=== PATIENT | male | born 1950 | race Caucasian/White ===

== ENCOUNTER → 2018-11-21 08:41 | Outpatient (CLI) | payer MEDICARE, OTHER, SELFPAY ==
--- NOTE | 2018-11-21 | DI.MRI.S_ITS ---
PROCEDURE: MR ANKLE RT WO CON INDICATIONS: RIGHT ANKLE WEAKNESS TECHNIQUE: Noncontrast sagittal T1 spin echo and T2 fast spin echo with fat saturation, axial proton density fast spin echo and T2 fast spin echo with fat saturation, coronal T1 spin echo and T2 fast spin echo with fat saturation through the ankle/hindfoot. COMPARISON: None. FINDINGS: Image quality: Excellent. Bones and joints: No bone marrow contusions or fractures. No hindfoot coalitions. Sub-5 mm subchondral marrow edema present within the medial talar dome. There is circumferential subcutaneous posterior ankle edema. No pathologic joint effusions. Medial structures: The posterior tibialis, flexor digitorum longus, and flexor hallucis longus tendons are intact. There is minimal posterior tibialis tenosynovitis. The posterior tibial neurovascular bundle appears normal within the tarsal tunnel, without extrinsic mass effect. The deep layer (anterior and posterior tibiotalar ligaments) and superficial layer (tibionavicular, tibiospring, and tibiocalcaneal ligaments) of the deltoid ligament appear normal. The spring ligament components (superomedial calcaneonavicular, medioplantar oblique calcaneonavicular, and inferoplantar longitudinal ligaments) are intact. Lateral structures: The anterior talofibular, calcaneofibular, and posterior talofibular ligaments appear intact. More superiorly, the anterior and posterior tibiofibular ligaments appear intact, as is the intermalleolar ligament. The tibiofibular syndesmosis is normal in width at 2 mm or less. The peroneus longus and brevis tendons demonstrate normal location and morphology. Adjacent bony peroneal tubercle and retrotrochlear prominence are normal in size. The sinus tarsi demonstrates normal fatty signal, without edema, fibrosis, or cyst formation. Visualized sinus tarsi components (cervical ligament, interosseous talocalcaneal ligament, roots of the inferior extensor retinaculum) appear normal. The calcaneonavicular and calcaneocuboid components of the bifurcate ligament appear intact. The dorsal calcaneocuboid ligament appears intact. Anterior structures: The tibialis anterior, extensor hallucis longus, and extensor digitorum longus tendons appear intact. The dorsal talonavicular ligament appears intact. Posterior and plantar structures: Achilles tendon is intact. Mild thickening of the medial band of the plantar fascia at the calcaneal attachment. IMPRESSION: Subchondral marrow signal change involving the medial talar dome, which could be degenerative versus osteochondral defect. No in situ fragment identified. Mild medial band plantar fasciitis, technically age-indeterminate. Prominent circumferential posterior subcutaneous edema, of unclear etiology. Low-grade posterior tibialis tenosynovitis. Dictated by: Jalen Argueta M.D. on 11/21/2018 at 10:26 Approved by: Jalen Argueta M.D. on 11/21/2018 at 10:44
== END ==
PROVIDERS: PCP Family Medicine; Visit Provider Family Medicine
DX: M25.871 Other specified joint disorders, right ankle and foot (principal); M72.2 Plantar fascial fibromatosis; M65.871 Other synovitis and tenosynovitis, right ankle and foot
CPT/HCPCS: 73721

== ENCOUNTER → 2020-02-28 12:32 | Outpatient (CLI) | payer MEDICARE, OTHER, SELFPAY ==
--- NOTE | 2020-02-28 12:35 | DI.MRI.S_ITS ---
PROCEDURE: MR KNEE RT WO CON INDICATIONS: Pain in right knee TECHNIQUE: Noncontrast sagittal PD fast spin echo and T2 fast spin echo with fat saturation, sagittal 3-D FLASH with fat saturation; coronal T1 spin echo and PD fast spin echo with fat saturation, and axial PD fast spin echo with fat saturation through the knee. COMPARISON: None. FINDINGS: Image quality: Excellent. Menisci: There is a complex tear involving the posterior horn of the medial meniscus. In addition, there is a radial tear involving the body of the medial meniscus. The lateral meniscus demonstrates normal morphology and internal signal. The meniscal root ligaments appear intact. Cruciate ligaments: The anterior and posterior cruciate ligaments appear intact. Medial structures: There is grade 1 sprain of the medial collateral ligament. The semimembranosus tendon insertions and meniscocapsular junction appear intact. Visualized portions of the pes anserinus tendons appear normal. No abnormal bursal fluid. Lateral structures: The lateral collateral ligament, long and short heads of the biceps femoris tendon appear intact. The popliteus tendon appears normal. Iliotibial band appears normal. Anterior structures: The quadriceps and patellar tendons appear intact. Patellar alignment is normal. No femoral trochlear dysplasia or ventral trochlear prominence. No edema in the infrapatellar fat pad. Bones and cartilage: No bone marrow contusions or fractures. There is mild cartilage thinning and fibrillation of the medial femorotibial compartment. Joint space: There is moderate knee joint effusion. There is a small Crowe's cyst. A synovial cyst is noted at the proximal tibiofibular joint. Normal appearing synovial plicae are incidentally noted. IMPRESSION: 1. Complex tear of the posterior horn of the medial meniscus. In addition, there is a radial tear of the body of the medial meniscus. 2. Grade 1 sprain of the medial collateral ligament. 3. Moderate knee joint effusion. 4. A small Crowe's cyst. 5. A small synovial cyst at the proximal tibial fibular joint. Dictated by: Sanna Morocho M.D. on 03/01/2020 at 8:55 Approved by: Sanna Morocho M.D. on 03/01/2020 at 12:45
== END ==
PROVIDERS: PCP Internal Medicine; Referring Provider Internal Medicine; Visit Provider Internal Medicine
DX: M25.561 Pain in right knee (principal); S83.231A Complex tear of medial meniscus, current injury, right knee, initial encounter; S83.411A Sprain of medial collateral ligament of right knee, initial encounter; M25.461 Effusion, right knee; M71.21 Synovial cyst of popliteal space [Baker], right knee
CPT/HCPCS: 73721

== ENCOUNTER → 2021-11-23 06:47 | Outpatient (CLI) | payer MEDICARE, OTHER, SELFPAY ==
[2021-11-23 08:27] LABS: Prostate Specific Antigen 1.45 ng/mL (0.10-4.00)
== END ==
PROVIDERS: PCP Internal Medicine; Referring Provider Specialist; Visit Provider Specialist
DX: N40.1 Benign prostatic hyperplasia with lower urinary tract symptoms (principal); D41.01 Neoplasm of uncertain behavior of right kidney; N13.8 Other obstructive and reflux uropathy; R97.20 Elevated prostate specific antigen [PSA]; K40.20 Bilateral inguinal hernia, without obstruction or gangrene, not specified as recurrent
CPT/HCPCS: 36415; 51798; 81002; 84153; 99215

== ENCOUNTER → 2022-05-25 10:28 | Outpatient (CLI) | payer MEDICARE, OTHER, SELFPAY ==
--- NOTE | 2022-05-25 12:46 | DI.US.S_ITS ---
PROCEDURE: US RENAL COMPLETE INDICATIONS: Renal Mass TECHNIQUE: Real-time scanning was performed of the kidneys and bladder, with image documentation. COMPARISON: [facility], [place], US ABDOMEN, 10/13/2021, 11:00. [facility], [place], CT ABDOMEN W/WO CONTRAST, 10/28/2021, 10:13. FINDINGS: Kidneys: There is a 1.2 x 1.5 x 1.1 cm hyperechoic, solid appearing mass in the lateral cortex of the mid right kidney. The mass was seen on the prior ultrasound CT and appears unchanged in size. Kidneys are normal in size. Right kidney measures 9.5 cm long; left kidney measures 9.9 cm long. Right renal cortical thickness is 1.3 cm; left renal cortical thickness is 2.0 cm. Renal cortical echotexture is normal. No hydronephrosis or nephrolithiasis. No suspicious solid mass lesions. Bladder: Pre-void bladder volume is 118 mL. Post-void residual is 0 mL. Pre-void images demonstrate no intraluminal masses or stones. On pre-void images, both ureteral jets are noted with color Doppler interrogation. (Of note, ureteral jets may not be detectable in up to 25% of cases due to insufficient differences in specific gravity between ureteral and bladder urine). Miscellaneous: No free pelvic fluid. IMPRESSION: A hyperechoic, solid mass in mid right kidney concerning for a renal cell carcinoma. The mass appears unchanged in size when compared to the last ultrasound and CT. Dictated by: Sanna Morocho M.D. on 05/25/2022 at 13:54 Approved by: Sanna Morocho M.D. on 05/25/2022 at 14:04
[2022-05-25 15:03] LABS: Prostate Specific Antigen 0.977 ng/mL (0.10-4.00)
== END ==
PROVIDERS: PCP Internal Medicine; Referring Provider Specialist; Visit Provider Specialist
DX: D41.01 Neoplasm of uncertain behavior of right kidney (principal); N40.1 Benign prostatic hyperplasia with lower urinary tract symptoms; N13.8 Other obstructive and reflux uropathy; K40.20 Bilateral inguinal hernia, without obstruction or gangrene, not specified as recurrent
CPT/HCPCS: 36415; 76770; 84153

== ENCOUNTER → 2022-11-16 10:06 | Outpatient (CLI) | payer MEDICARE, OTHER, SELFPAY ==
--- NOTE | 2022-11-16 10:08 | DI.US.S_ITS ---
PROCEDURE: US RENAL COMPLETE INDICATIONS: RIGHT KIDNEY MASS TECHNIQUE: Real-time scanning was performed of the kidneys and bladder, with image documentation. COMPARISON: [facility], , US RENAL COMPLETE, 05/25/2022, 12:54. FINDINGS: Kidneys: Kidneys are normal in size. Right kidney measures 9.8 cm long; left kidney measures 10.8 cm long. Right renal cortical thickness is 1.2 cm; left renal cortical thickness is 1.7 cm. Renal cortical echotexture is normal. No hydronephrosis or nephrolithiasis. 1.2 x 0.9 x 1.5 cm slightly hypoechoic and solid appearing nodule involving anterior cortex of midpole right kidney is seen previously measures 1.5 x 1.1 x 1.2 cm in size. No definite internal vascularity is noted. Bladder: Pre-void bladder volume is 471 mL. Post-void residual is 45 mL. Pre-void images demonstrate no intraluminal masses or stones. On pre-void images, no ureteral jets are noted with color Doppler interrogation. (Of note, ureteral jets may not be detectable in up to 25% of cases due to insufficient differences in specific gravity between ureteral and bladder urine). Miscellaneous: No free pelvic fluid. Mildly enlarged prostate gland with heterogeneous echotexture and mild mass effect on floor of urinary bladder is seen measures 4.5 x 4.4 x 3.7 cm in size. IMPRESSION: 1. Previously noted solid nodule in midpole right kidney remains stable in size and appearance. Slow growing renal cell carcinoma remains as primary differential. 2. No hydronephrosis. No new suspicious renal lesion. 3. Normal appearing urinary bladder with small to moderate amount of postvoid residual. Mildly enlarged prostate gland as above. Dictated by: Aly Horne M.D. on 11/16/2022 at 12:51 Approved by: Aly Horne M.D. on 11/16/2022 at 13:02
[2022-11-16 12:52] LABS: Prostate Specific Antigen 0.782 ng/mL (0.10-4.00)
== END ==
PROVIDERS: PCP Student in an Organized Health Care Education/Training Program; Referring Provider Specialist; Visit Provider Specialist
DX: N40.1 Benign prostatic hyperplasia with lower urinary tract symptoms (principal); N13.8 Other obstructive and reflux uropathy; D41.01 Neoplasm of uncertain behavior of right kidney
CPT/HCPCS: 36415; 76770; 84153

== ENCOUNTER → 2023-11-14 09:39 | Outpatient (CLI) | payer MEDICARE, OTHER, SELFPAY ==
--- NOTE | 2023-11-14 09:41 | DI.US.S_ITS ---
PROCEDURE: US RENAL COMPLETE INDICATIONS: Neoplasm of kidney TECHNIQUE: Real-time scanning was performed of the kidneys and bladder, with image documentation. COMPARISON: , , RENAL COMPLETE, 11/16/2022, 11:12. FINDINGS: Kidneys: Kidneys are normal in size. Right kidney measures 10.8 cm long; left kidney measures 10.5 cm long. Right renal cortical thickness is 1.0 cm; left renal cortical thickness is 1.0 cm. Renal cortical echotexture is normal. No hydronephrosis or nephrolithiasis. There is a heterogeneous, solid-appearing renal lesion measuring 2.0 x 1.7 x 1.7 cm, previously 1.2 x 0.9 x 1.5 cm. Bladder: Pre-void bladder volume is 200 mL. Post-void residual is 10 mL. Pre-void images demonstrate no intraluminal masses or stones. On pre-void images, bilateral ureteral jets are noted with color Doppler interrogation. (Of note, ureteral jets may not be detectable in up to 25% of cases due to insufficient differences in specific gravity between ureteral and bladder urine). Miscellaneous: No free pelvic fluid. The prostate appears enlarged. IMPRESSION: 2.0 cm solid lesion in the right kidney, with mild interval increase in size, raising concern for renal cell carcinoma. Dictated by: Flora Gomez M.D. on 11/14/2023 at 14:03 Approved by: Flora Gomez M.D. on 11/14/2023 at 14:08
[2023-11-14 14:29] LABS: Prostate Specific Antigen 0.862 ng/mL (0.10-4.00)
== END ==
PROVIDERS: PCP Student in an Organized Health Care Education/Training Program; Referring Provider Specialist; Visit Provider Specialist
DX: R97.20 Elevated prostate specific antigen [PSA] (principal); D41.01 Neoplasm of uncertain behavior of right kidney
CPT/HCPCS: 36415; 76770; 84153

== ENCOUNTER → 2024-06-05 10:25 | Outpatient (CLI) | payer MEDICARE, OTHER, SELFPAY ==
--- NOTE | 2024-06-05 10:26 | DI.US.S_ITS ---
PROCEDURE: US RENAL COMPLETE INDICATIONS: KIDNEY STONES TECHNIQUE: Real-time scanning was performed of the kidneys and bladder, with image documentation. COMPARISON: [facility], , US RENAL COMPLETE, 11/14/2023, 10:05. FINDINGS: Kidneys: Kidneys are normal in size. Right kidney measures 10.6 cm long; left kidney measures 10.9 cm long. Right renal cortical thickness is 1.5 cm; left renal cortical thickness is 2.0 cm. Renal cortical echotexture is normal. No hydronephrosis or nephrolithiasis. Solid-appearing mass lesion centered on the mid cortex measures 1.9 x 1.8 x 2.0 cm, previously 2.0 x 1.7 x 1.7 cm. No internal vascularity noted. Bladder: Pre-void bladder volume is 232 mL. Post-void residual is 23 mL. Pre-void images demonstrate no intraluminal masses or stones. On pre-void images, bilateral ureteral jets are noted with color Doppler interrogation. (Of note, ureteral jets may not be detectable in up to 25% of cases due to insufficient differences in specific gravity between ureteral and bladder urine). Miscellaneous: No free pelvic fluid. Prostate measures 4.0 x 4.0 x 3.5 cm IMPRESSION: Nonvascular solid appearing right renal mass lesion is similar in size to the prior exam Approved by: Martin Razo M.D. on 06/05/2024 at 17:04
== END ==
PROVIDERS: PCP Student in an Organized Health Care Education/Training Program; Referring Provider Urology; Visit Provider Urology
DX: D41.01 Neoplasm of uncertain behavior of right kidney (principal)
CPT/HCPCS: 76770

== ENCOUNTER → 2024-12-09 09:32 | Outpatient (CLI) | payer MEDICARE, OTHER, SELFPAY ==
--- NOTE | 2024-12-09 09:33 | DI.US.S_ITS ---
PROCEDURE: US RENAL COMPLETE INDICATIONS: RIGHT KIDNEY MASS CONCERNING FOR RENAL CELL CARCINOMA TECHNIQUE: Real-time scanning was performed of the kidneys and bladder, with image documentation. COMPARISON: [facility], , US RENAL COMPLETE, 06/05/2024, 10:46. FINDINGS: Kidneys: Kidneys are normal in size. Right kidney measures 9.9 cm long; left kidney measures 10.3 cm long. Right renal cortical thickness is 1.8 cm; left renal cortical thickness is 2.1 cm. Renal cortical echotexture is normal. No hydronephrosis or nephrolithiasis. There is a hyperechoic homogeneous solid mass in the mid/anterior region of the right kidney measuring 2.3 x 2.2 x 2 cm. Bladder: Pre-void bladder volume is 409 mL. Post-void residual is 131 mL. Pre-void images demonstrate no intraluminal masses or stones. On pre-void images, bilateral ureteral jets are noted with color Doppler interrogation. (Of note, ureteral jets may not be detectable in up to 25% of cases due to insufficient differences in specific gravity between ureteral and bladder urine). The prostate measures 3.8 x 4.6 x 3.9 cm, a volume of 36 cc. Miscellaneous: Fatty infiltration of the liver and cholelithiasis. IMPRESSION: 1. Slight enlargement of the solid mass in the right kidney, therefore suspicious for low-grade neoplasm. 2. Large postvoid bladder residual. Dictated by: Anibal Carrillo M.D. on 12/09/2024 at 21:28 Approved by: Anibal Carrillo M.D. on 12/09/2024 at 21:31
[2024-12-09 11:30] LABS: Prostate Specific Antigen 0.901 ng/mL (0.10-4.00)
== END ==
LOC: US 09:33
PROVIDERS: Referring Provider Urology; Visit Provider Urology
DX: D41.01 Neoplasm of uncertain behavior of right kidney (principal); R33.9 Retention of urine, unspecified; K76.0 Fatty (change of) liver, not elsewhere classified; K80.20 Calculus of gallbladder without cholecystitis without obstruction
CPT/HCPCS: 36415; 76770; 84153